=== PATIENT | female | born 1955 | race Caucasian/White ===

== ENCOUNTER 2020-07-06 18:24 | Inpatient (IN) | payer MEDICARE, OTHER ==
[~2020-07-06] VITALS: Ht 160 cm; Wt 48.5 kg
[2020-07-06] MEDS ORDERED: SODIUM CHLORIDE 0.9% 1,000 ML IV ONE (19:00)
[2020-07-06 19:25] LABS: BASOPHILS % (AUTO) 0.7 % (0.0-2.0); EOSINOPHILS % (AUTO) 2.6 % (1.0-6.0); HEMATOCRIT 38.1 % (36-46); HEMOGLOBIN 12.4 g/dL (12.0-16.0); LYMPHOCYTES # (AUTO) 0.9 K/uL (1.0-4.8); LYMPHOCYTES % (AUTO) 17.7 % (22.0-44.0); MEAN CORPUSCULAR HEMOGLOBIN 31.7 pg (26.0-34.0); MEAN CORPUSCULAR HGB CONC 32.5 G/dL (31.0-37.0); MEAN CORPUSCULAR VOLUME 97 fL (80-100); MONOCYTES # (AUTO) 0.3 K/uL (0.1-1.0); MONOCYTES % (AUTO) 6.3 % (2.0-9.0); NEUTROPHILS # (AUTO) 3.6 K/uL (1.8-7.7); NEUTROPHILS % (AUTO) 72.7 % (40.0-70.0); PLATELET COUNT (AUTO) 233 K/uL (150-450); RED BLOOD CELL COUNT(AUTO) 3.92 MIL/uL (4.00-5.20); RED CELL DISTRIBUTION WIDTH 12.7 % (11.5-14.5)
[2020-07-06 19:31] LABS: CALCIUM, TOTAL 9.2 mg/dL (8.8-10.5); CREATININE 1.37 mg/dL (0.60-1.30); POTASSIUM 4.1 mmol/L (3.5-5.1)
[2020-07-06 19:38] LABS: ALBUMIN 3.6 g/dL (3.4-5.0); BILIRUBIN,TOTAL 0.3 mg/dL (0.1-1.0); TOTAL PROTEIN, SERUM 6.4 g/dL (6.4-8.2)
[2020-07-06 20:07] LABS: APPEARANCE,URINE CLEAR (CLEAR); BILIRUBIN,URINE NEGATIVE (NEGATIVE); GLUCOSE, URINE (UA) NEGATIVE (NEGATIVE); KETONES,URINE NEGATIVE (NEGATIVE); LEUKOCYTE ESTERASE ,URINE NEGATIVE (NEGATIVE); NITRATE,URINE NEGATIVE (NEGATIVE); OCCULT BLOOD,URINE NEGATIVE (NEGATIVE); PH,URINE 6.5 (5.0-8.0); PROTEIN,URINE NEGATIVE (NEGATIVE); UROBILINOGEN,URINE 0.2 mg/dL (<=1.0)
[2020-07-06 20:12] LABS: AMPHET/METH SCREEN,URINE NEGATIVE (NEGATIVE); BARBITURATE SCREEN, URINE NEGATIVE (NEGATIVE); BENZODIAZEPINES SCREEN,URINE NEGATIVE (NEGATIVE); CANNABINOID SCREEN,URINE NEGATIVE (NEGATIVE); COCAINE SCREEN,URINE NEGATIVE (NEGATIVE); METHADONE SCREEN, URINE NEGATIVE (NEGATIVE); OPIATE SCREEN,URINE NEGATIVE (NEGATIVE)
[2020-07-06 20:18] LABS: PHENCYCLIDINE SCREEN,URINE NEGATIVE (NEGATIVE)
[2020-07-06 20:19] LABS: BACTERIA,URINE None Seen /HPF (None Seen); RBC,URINE None Seen /HPF (0-2); SQUAMOUS EPITHELIAL CELL,UR None Seen /LPF (None Seen); WBC,URINE None Seen /HPF (0-5)
[2020-07-06] MEDS ORDERED: LORazepam 2 MG/ML VIAL IVP ONE ×2 (20:30→21:45)
[2020-07-07 03:06] LABS: THYROID STIMULATING HORMONE 9.97 uIU/mL (0.36-3.74)
[2020-07-07] MEDS ORDERED: 0.9% SODIUM CHLORIDE 10 ML SYRINGE IVP PRN (03:45)
[2020-07-07] MEDS ORDERED: ACETAMINOPHEN 325 MG TABLET PO PRN ×2 (03:45→12:30)
[2020-07-07] MEDS ORDERED: MAGNESIUM SULFATE 2 GM, MVI, ADULT NO.1 WITH VIT K 10 ML, THIAMINE 100 MG, FOLIC ACID 1... IV ONE ×10 (04:00→12:30)
[2020-07-07 08:44] VITALS: BP 179/102
[2020-07-07 09:14] VITALS: BP 139/76
[2020-07-07 12:30] VITALS: BP 153/98
[2020-07-07] MEDS ORDERED: BISACODYL 10 MG RECTAL RECTAL SUPPOSITORY PR PRN (12:30)
[2020-07-07] MEDS ORDERED: MAGNESIUM HYDROXIDE SUSPENSION 30 ML UDCUP PO PRN (12:30)
[2020-07-07] MEDS ORDERED: ONDANSETRON HCL 4 MG/2 ML VIAL IVP PRN (12:30)
[2020-07-07] MEDS ORDERED: HYDROCODONE/ACETAMINOPHEN 5-325 MG TABLET PO PRN (12:30)
[2020-07-07] MEDS ORDERED: MORPHINE SULFATE 2 MG/ML SYRINGE IVP PRN (12:30)
[2020-07-07] MEDS ORDERED: ZOLPIDEM TARTRATE 5 MG TABLET PO PRN (12:30)
[2020-07-07 15:28] VITALS: BP 152/92
[2020-07-07] MEDS: AmLODIPine BESYLATE 5 MG TABLET PO SCH (15:56)
[2020-07-07] MEDS: THIAMINE 100 MG TABLET PO SCH (15:56)
[2020-07-07] MEDS: HEPARIN SODIUM,PORCINE 5,000 UNITS/ML VIAL SQ SCH ×2 (16:00→23:58)
[2020-07-07 19:40] VITALS: BP 158/95
[2020-07-07] MEDS: DOCUSATE SODIUM 100 MG CAPSULE PO SCH ×2 (21:00→21:32)
[2020-07-07 23:46] VITALS: BP 175/98
[2020-07-08 03:49] VITALS: BP 150/80
[2020-07-08 07:37] VITALS: BP 157/101
[2020-07-08] MEDS: HEPARIN SODIUM,PORCINE 5,000 UNITS/ML VIAL SQ SCH ×3 (08:00→23:09)
[2020-07-08] MEDS: DOCUSATE SODIUM 100 MG CAPSULE PO SCH ×3 (09:00→20:17)
[2020-07-08] MEDS: THIAMINE 100 MG TABLET PO SCH (10:05)
[2020-07-08] MEDS: FOLIC ACID 1 MG TABLET PO SCH (10:05)
[2020-07-08] MEDS: PANTOPRAZOLE SODIUM 40 MG DR TABLET PO SCH (10:05)
[2020-07-08] MEDS: AmLODIPine BESYLATE 5 MG TABLET PO SCH (10:05)
[2020-07-08 11:12] VITALS: BP 176/97
[2020-07-08 12:42] LABS: CALCIUM, TOTAL 9.4 mg/dL (8.8-10.5); CREATININE 1.34 mg/dL (0.60-1.30); POTASSIUM 4.1 mmol/L (3.5-5.1)
[2020-07-08 12:51] LABS: FREE T4 (FREE THYROXINE) 1.04 ng/dL (0.76-1.46)
[2020-07-08 16:39] VITALS: BP 168/98
[2020-07-08 19:41] VITALS: BP 147/81
[2020-07-08 23:17] VITALS: BP 160/88
[2020-07-09 04:25] VITALS: BP 150/97
[2020-07-09 07:09] VITALS: BP 175/99
[2020-07-09] MEDS: HEPARIN SODIUM,PORCINE 5,000 UNITS/ML VIAL SQ SCH (08:00)
[2020-07-09] MEDS: PANTOPRAZOLE SODIUM 40 MG DR TABLET PO SCH (08:25)
[2020-07-09] MEDS: FOLIC ACID 1 MG TABLET PO SCH (08:25)
[2020-07-09] MEDS: THIAMINE 100 MG TABLET PO SCH (08:25)
[2020-07-09] MEDS: AmLODIPine BESYLATE 5 MG TABLET PO SCH (08:26)
[2020-07-09] MEDS: DOCUSATE SODIUM 100 MG CAPSULE PO SCH (08:28)
[2020-07-09 11:35] VITALS: BP 149/97
[2020-07-09] MEDS ORDERED: HYDR25TA84 PO (11:54)
[2020-07-09] MEDS ORDERED: AMLO-258 PO (11:54)
[2020-07-09] MEDS ORDERED: FOLI-130 PO (13:30)
[2020-07-09] MEDS ORDERED: THIA100T80 PO (13:30)
[2020-07-09] MEDS ORDERED: HydrALAZINE HCL 25 MG TABLET PO SCH (16:00)
[2020-07-10] MEDS ORDERED: AmLODIPine BESYLATE 10 MG TABLET PO SCH (09:00)
== END 2020-07-09 14:30 | disposition home or self-care (01) | DRG 682 ==
LOC: EMS 18:24 → 5S 07-07 08:16 → 5N 07-07 08:30 → 5S 07-08 14:45
PROVIDERS: ADMIT Internal Medicine; ATTEND Internal Medicine
DX: N17.9 Acute kidney failure, unspecified (principal); G93.41 Metabolic encephalopathy; E51.2 Wernicke's encephalopathy; E03.9 Hypothyroidism, unspecified; F29 Unspecified psychosis not due to a substance or known physiological condition; Z20.822 Contact with and (suspected) exposure to COVID-19; F10.20 Alcohol dependence, uncomplicated; I16.0 Hypertensive urgency; Z79.899 Other long term (current) drug therapy
CPT/HCPCS: 70450; 71045; 80048; 80053; 80164; 80178; 81001; 82140; 82550; 84439; 84443; 84484; 85025; 93005; 99291; J1644; J2060; J3411; J3475; J3490; J7030; 36415-L1; 36415-TC; U0003